=== PATIENT | male | born 1940 | race Caucasian/White ===

== ENCOUNTER 2025-02-03 00:23 | Inpatient (IN) | payer MEDICARE, MEDICAID ==
[2025-02-03 00:57] LABS: #Basophils 0.06 10x3/uL (0.0-0.2); #Eosinophils 0.47 10x3/uL (0.0-0.7); #Monocytes 1.03 10x3/uL (0.11-0.59); #Neutrophils 5.58 10x3/uL (1.40-6.50); %Basophils 0.7 % (0.0-1.0); %Eosinophils 5.3 % (0.0-10.0); %Lymphocytes 19.7 % (21.0-51.0); %Monocytes 11.5 % (0.0-10.0); %Neutrophils 62.4 % (42.0-75.0); Hematocrit 36.6 % (42.0-52.0); Hemoglobin 11.9 g/dL (14.0-18.0); Mean Corpuscular Hemoglobin 30.9 pg (27.0-31.0); Mean Corpuscular Volume 95.1 fL (78.0-98.0); Platelet Count 283 10x3/uL (130-400); Red Blood Cell (RBC) Count 3.85 mill/uL (4.70-6.10); White Blood Cell (WBC) Count 8.94 10x3/uL (4.8-10.8)
[2025-02-03 01:15] LABS: ALT (SGPT) 18 U/L (Less than 45); AST (SGOT) 28 U/L (11-34); Albumin 3.4 g/dL (3.1-4.5); Alkaline Phosphatase 97 U/L (40-110); Anion Gap 14 mmol/L (10-20); BUN (Urea Nitrogen) 25 mg/dL (8.4-25.7); Bilirubin, Total 0.3 mg/dL (0.3-1.2); Calc. Creatinine Clearance 0 mL/min (70-130); Calcium 9.0 mg/dL (7.8-10.44); Carbon Dioxide 26 mmol/L (23-31); Chloride 105 mmol/L (98-107); Globulin 3.6 g/dL (2.4-3.5); Glucose 98 mg/dL (83-110); Lipase 29 U/L (8-78); Magnesium 2.0 mg/dL (1.6-2.6); Potassium 4.1 mmol/L (3.5-5.1); Sodium 141 mmol/L (136-145)
[2025-02-03] MEDS ORDERED: Enoxaparin 100 MG (1 mL) SYRINGE ONE (06:38)
[2025-02-03] MEDS ORDERED: Aspirin Chewable 81 MG TAB ONE (06:38)
[2025-02-03 08:23] VITALS: BMI 24.3
[2025-02-03] MEDS ORDERED: Senokot S 8.6-50 MG TAB PO PRN (08:34)
[2025-02-03] MEDS ORDERED: Nitroglycerin 0.4 MG TAB (25 Tab Bottle) SL PRN (08:34)
[2025-02-03] MEDS ORDERED: Aspirin 81 mg Enteric Coated Tablet PO SCH (09:00)
[2025-02-03] MEDS ORDERED: Iopamidol-370 76% 500 ML MDV (1 ML CHARGE) ONE (11:03)
[2025-02-03] MEDS: Melatonin 3 MG TAB PO PRN (19:36)
[2025-02-03] MEDS: QUEtiapine 25 MG TAB PO SCH (19:36)
[2025-02-03] MEDS: Enoxaparin 80 MG (0.8 mL) SYRINGE SC SCH (19:39)
[2025-02-04 03:48] LABS: #Basophils 0.07 10x3/uL (0.0-0.2); #Eosinophils 0.38 10x3/uL (0.0-0.7); #Monocytes 0.97 10x3/uL (0.11-0.59); #Neutrophils 4.22 10x3/uL (1.40-6.50); %Basophils 0.9 % (0.0-1.0); %Eosinophils 4.7 % (0.0-10.0); %Lymphocytes 30.3 % (21.0-51.0); %Monocytes 11.9 % (0.0-10.0); %Neutrophils 52.0 % (42.0-75.0); Hematocrit 37.1 % (42.0-52.0); Hemoglobin 12.0 g/dL (14.0-18.0); Mean Corpuscular Hemoglobin 31.4 pg (27.0-31.0); Mean Corpuscular Volume 97.1 fL (78.0-98.0); Platelet Count 246 10x3/uL (130-400); Red Blood Cell (RBC) Count 3.82 mill/uL (4.70-6.10); White Blood Cell (WBC) Count 8.12 10x3/uL (4.8-10.8)
[2025-02-04 04:14] LABS: Anion Gap 14 mmol/L (10-20); BUN (Urea Nitrogen) 19 mg/dL (8.4-25.7); Calc. Creatinine Clearance 58 mL/min (70-130); Calcium 8.8 mg/dL (7.8-10.44); Carbon Dioxide 23 mmol/L (23-31); Cardiac Risk 4.0 (Less than 4.5); Chloride 106 mmol/L (98-107); Cholesterol 129 mg/dl (< 200 Desired); Glucose 97 mg/dL (83-110); HDL Cholesterol 32 mg/dL (>60 Neg Risk); LDL Cholesterol, Calculated 47 mg/dL; Potassium 3.9 mmol/L (3.5-5.1); Sodium 139 mmol/L (136-145); Triglycerides 250 mg/dL (Less than 150)
[2025-02-04] MEDS: Enoxaparin 40 MG (0.4 mL) SYRINGE SC SCH (09:11)
[2025-02-04] MEDS: Aspirin 81 mg Enteric Coated Tablet PO SCH (09:11)
[2025-02-04] MEDS: Metoprolol Succinate XL 25 MG ER.TAB PO SCH (09:11)
[2025-02-04] MEDS: Lisinopril 10 MG TAB PO SCH (10:35)
[2025-02-04] MEDS: Isosorbide Mononitrate 30 MG ER.TAB.S PO SCH (11:02)
[2025-02-04] MEDS: Acetaminophen 325 MG TAB PO PRN (14:24)
[2025-02-04] MEDS: OLANZapine 10 MG VIAL IM SCH (17:44)
[2025-02-05 05:31] LABS: #Basophils 0.08 10x3/uL (0.0-0.2); #Eosinophils 0.33 10x3/uL (0.0-0.7); #Monocytes 1.19 10x3/uL (0.11-0.59); #Neutrophils 5.08 10x3/uL (1.40-6.50); %Basophils 0.9 % (0.0-1.0); %Eosinophils 3.7 % (0.0-10.0); %Lymphocytes 24.5 % (21.0-51.0); %Monocytes 13.4 % (0.0-10.0); %Neutrophils 57.1 % (42.0-75.0); Hematocrit 38.7 % (42.0-52.0); Hemoglobin 12.2 g/dL (14.0-18.0); Mean Corpuscular Hemoglobin 30.1 pg (27.0-31.0); Mean Corpuscular Volume 95.6 fL (78.0-98.0); Platelet Count 289 10x3/uL (130-400); Red Blood Cell (RBC) Count 4.05 mill/uL (4.70-6.10); White Blood Cell (WBC) Count 8.90 10x3/uL (4.8-10.8)
[2025-02-05 05:47] LABS: Anion Gap 14 mmol/L (10-20); BUN (Urea Nitrogen) 18 mg/dL (8.4-25.7); Calc. Creatinine Clearance 61 mL/min (70-130); Calcium 9.1 mg/dL (7.8-10.44); Carbon Dioxide 23 mmol/L (23-31); Chloride 106 mmol/L (98-107); Glucose 88 mg/dL (83-110); Potassium 3.9 mmol/L (3.5-5.1); Sodium 139 mmol/L (136-145)
[2025-02-05] MEDS: Divalproex Sodium 125 mg Sprinkle Capsule PO SCH (10:42)
[2025-02-05] MEDS: Gabapentin 100 MG CAP PO SCH (10:43)
[2025-02-05] MEDS: Isosorbide Mononitrate 30 MG ER.TAB.S PO SCH (10:44)
[2025-02-05] MEDS: Cholecalciferol 1,000 UNITS (25 MCG) TAB PO SCH (10:44)
[2025-02-05] MEDS: QUEtiapine 25 MG TAB PO SCH (10:45)
[2025-02-05] MEDS: Lisinopril 10 MG TAB PO SCH (10:47)
[2025-02-05 21:45] VITALS: BP 112/64; TEMP 98
== END 2025-02-05 21:46 | DRG 281 ==
LOC: ERS 00:23 → 2SE 07:52
PROVIDERS: ADMIT Internal Medicine; ATTEND Internal Medicine
DX: I21.4 Non-ST elevation (NSTEMI) myocardial infarction (principal); F02.811 Dementia in other diseases classified elsewhere, unspecified severity, with agitation; I25.10 Atherosclerotic heart disease of native coronary artery without angina pectoris; I10 Essential (primary) hypertension; E78.5 Hyperlipidemia, unspecified; J44.9 Chronic obstructive pulmonary disease, unspecified; Z98.890 Other specified postprocedural states; G30.9 Alzheimer's disease, unspecified; F32.A Depression, unspecified; Z79.899 Other long term (current) drug therapy; Z79.82 Long term (current) use of aspirin
CPT/HCPCS: 36415; 71045; 71275; 80048; 80053; 80061; 83690; 83735; 83880; 84484; 85025; 85379; 93005; 93306; 96372; 96374; J1650; J2270; Q9967